=== PATIENT | female | born 1990 | race Caucasian/White ===

== ENCOUNTER 2021-06-07 03:59 | Inpatient (IN) | payer MEDICAID, SELFPAY ==
--- NOTE | 2021-06-07 | ECG_ITS ---
Test Reason : MEDICAL CLEARANCE Blood Pressure : / mmHG Vent. Rate : 097 BPM Atrial Rate : 097 BPM P-R Int : 146 ms QRS Dur : 080 ms QT Int : 366 ms P-R-T Axes : 043 054 013 degrees QTc Int : 464 ms Normal sinus rhythm Normal ECG No previous ECGs available Referred By: Marta Manning Electronically Signed By:ARLEY JUAN MD
[2021-06-07 04:06] VITALS: BP 130/77; PULSE 93; RESP 18; TEMP 36.9; O2SAT 100; BMI 37.2
--- NOTE | 2021-06-07 04:41 | ED.PSYCH ---
HPI - Psych General Chief Complaint: Psychiatric Symptoms Stated Complaint: suicidal thoughts Time Seen by Provider: 06/07/21 04:30 Source: patient Mode of arrival: ambulatory Limitations: no limitations History of Present Illness HPI Narrative: Patient comes to the emergency room via private vehicle. Patient states that she has been feeling suicidal, depressed for approximately 3 days. Patient states that she has history of suicide attempts, patient has tried overdosing with medications and cutting her wrists. Patient states that today she was very close to doing so. Patient states that she is going ?to a lot?. Patient used to take medications for depression, states she has been off medications for many years Related Data Allergies Allergy/AdvReac Type Severity Reaction Status Date / Time No Known Allergies Allergy Verified 06/07/21 04:06 Review of Systems Review of Systems: Constitutional : No Weight loss, No Fever, No Chills, No Night Sweats, No Fatigue, No Malaise ENT/Mouth : No Hearing loss, No Ear Pain, No Nasal Congestion, No Sinus Pain, No Hoarseness, No sore throat, No Rhinorrhea, No Swallowing Difficulty Eyes: No Eye Pain, No Swelling, No Redness, No Foreign Body, No Discharge, No Vision Changes Cardiovascular : No Chest Pain, No SOB, No Dyspnea on Exertion, No Orthopnea, No Edema, No Palpitations Respiratory : No Cough, No Sputum, No Wheezing, No Smoke Exposure, No Dyspnea Gastrointestinal : No Nausea, No Vomiting, No Diarrhea, No Constipation, No abdominal Pain, No Hematochezia, No Melena Genitourinary : no irregular bleeding, No Dysuria, No Urinary Frequency, No Hematuria, No Urinary Incontinence, No Urgency, No Flank Pain, No Urinary Flow Changes, No Hesitancy Musculoskeletal : No joint pain, No Myalgias, No Joint Swelling Skin : No Skin Lesions, No rash Neuro : No Weakness, No Numbness, No Paresthesias, No Loss of Consciousness, No Dizziness, No Headache Psych : Complaining of anxiety, depression, suicidal ideation, no homicidal ideation Heme/Lymph: No Bruising, No Bleeding,No Lymphadenopathy Endocrine : No Polyuria, No Polydipsia, No Temperature Intolerance PMFSH Past Medical History Medical History (Updated 06/07/21 @ 04:46 by Dayanara Wolf MD) Anxiety Depression Social History Social History Advance Directives: No Patient : No Physical Exam Vital Signs: Vital Signs: Last Vital Signs Temp 98.5 F 06/07/21 04:06 Pulse 93 06/07/21 04:06 Resp 18 06/07/21 04:06 BP 130/77 06/07/21 04:06 Pulse Ox 100 06/07/21 04:06 BMI result Body Mass Index 37.2 Const: Other: Appearance: Alert. Oriented X3. Eyes: Pupils equal, round and reactive to light. ENT: Pharynx normal. Neck: Normal inspection. Neck supple. No lymph nodes noted. No crepitus CVS: Normal heart rate and rhythm. Pulses normal. Normal S1 and S2 Respiratory: No respiratory distress. Breath sounds normal. No Wheezing. No rales Abdomen: Soft and nontender. No rigidity. No distention. Skin: Skin warm and dry. Normal skin color. Normal skin turgor. Extremities: No lower extremity edema. No Lacerations. No Rash Neuro: Oriented X 3. No motor deficit. No sensory deficit. Moving all extermities. No slurred speech. Cranial nerves 2-12 grossly intact Psych: Calm, cooperative, teary, coherent Course Course Course Narrative: Given her prior history of suicide attempts, patient is now under a Section 12, now in patient's chart. Patient [facility] by [facility]. Physician observation started at 04:37 Discharge Plan Discharge Clinical Impression: Suicidal ideation Patient Disposition: Still a Patient
--- NOTE | 2021-06-07 04:44 | PC.NURSE ---
Per MD, plan for Sec 12. Security at bedside for changeover with ALICIA Singletary.
[2021-06-07 05:01] LABS: Appearance Urine HAZY; Color Urine YELLOW; Glucose Urine UA NEG (NEG); Leukocyte Esterase Urine NEG (NEG); Nitrite Urine NEG (NEG); PH 6.5 (5.0-8.0); Urine Blood NEG (NEG); Urine Ketones NEG (NEG); Urine Protein NEG (NEG-TRACE)
[2021-06-07 05:02] LABS: UPreg QC Valid YES; Urine Pregnancy NEGATIVE (NEGATIVE)
--- NOTE | 2021-06-07 05:02 | PC.NURSE ---
pt ambulated to the bathroom with steady gait. urine collected, pt calm and cooperative. pt has been s12 per dr luna. pt is in pod clothing and belongings gone thur with security.
[2021-06-07 05:14] LABS: COVID-19 Test Negative (Negative); IDNOW Serial# 9DD0AD1C
[2021-06-07 05:15] LABS: Amphetamine Screen Urine Not Detected (Not Detect); Barbiturates, Urine Not Detected (Not Detect); Benzodiazepines Screen Urine Not Detected (Not Detect); Cannabinoid Screen Urine POSITIVE (Not Detect); Cocaine Screen Urine Not Detected (Not Detect); Fentanyl, urine Not Detected (Not Detect); Opiate Screen Urine Not Detected (Not Detect); Phencyclidine Screen Urine Not Detected (Not Detect)
[2021-06-07] MEDS: LORazepam 1 MG TABLET 2 MG PO (06:47)
--- NOTE | 2021-06-07 06:49 | PC.NURSE ---
Patient was just transferred to ED POD from main ED, independent ambulation, tearful, depressed, [facility] referral completed/confirmed, pending ETA, patient reported racing thought and anxiety 10/29, provider notified/ordered Ativan 2 mg PO, administered as ordered, pending effect, patient requested not to share her record with anyone at this time, no medication claim history available at this time, will continue to monitor.
--- NOTE | 2021-06-07 07:31 | PC.NURSE ---
patient appears to remain asleep at present respirations are even and unlabored, patient appears in no distress
[2021-06-07 14:33] LABS: MANUAL DIFF FLAG NO
[2021-06-07 14:34] LABS: Basophils Percent Auto 0.2 % (0-2); Eosinophils Percent Auto 0.2 % (0-4); Hematocrit 41.4 % (37.0-47.0); Hemoglobin 14.3 g/dl (12.0-16.0); Imm Gran Abs Auto 0.02 X10*3/uL (0.00-0.03); Imm Gran Pct Auto 0.2 % (0.0-0.4); Lymphocytes Absolute Auto 2.1 X10*3/uL (1.2-4.9); Lymphocytes Percent Auto 21.4 % (20-40); Mean Corpuscular HGB Conc 34.5 g/dl (31.0-35.0); Mean Corpuscular Hemoglobin 31.4 pg (27.0-33.0); Mean Platelet Volume 8.4 fL (9.4-12.3); Monocytes Absolute Auto 0.5 X10*3/uL (0.1-1.2); Monocytes Percent Auto 5.5 % (2-11); Neutrophils Absolute Auto 6.9 x10*3/uL (2.0-8.3); Neutrophils Percent Auto 72.5 % (45-73); Platelet Count 303 X10*3/uL (160-400); Red Blood Count 4.55 X10*6/uL (4.20-5.50); Red Cell Distribution Width 11.8 % (11.0-16.0); White Blood Count 9.6 X10*3/uL (4.8-10.8)
[2021-06-07 14:53] LABS: Alanine Aminotransferase 29 U/L (0-31); Albumin Level 4.3 g/dL (3.5-5.0); Alkaline Phosphatase 83 U/L (39-117); Anion Gap 12 (12-20); Aspartate Amino Transferase 21 U/L (5-31); Bilirubin Total 0.6 mg/dL (0.0-1.0); Blood Urea Nitrogen 10 mg/dL (9-16); Calcium 9.9 mg/dL (8.4-10.2); Carbon Dioxide 26 mmol/L (22-29); Chloride 105 mmol/L (96-108); Creatinine Clr Calc Pharmacy 112.5; Estimated Glomerular Filt Rate > 60; Glucose Random 165 mg/dL (60-115); Potassium 3.8 mmol/L (3.3-5.1); Sodium 139 mmol/L (135-145)
[2021-06-07 15:55] VITALS: BP 155/95; PULSE 79; RESP 20; TEMP 36.8; O2SAT 96
[2021-06-07] MEDS: hydrOXYzine HCL 50 MG TABLET PO (16:30)
[2021-06-07] MEDS: Acetaminophen 325 MG TABLET 975 MG PO (16:30)
[2021-06-07 23:19] VITALS: BP 108/67; PULSE 82; RESP 18; TEMP 36.3; O2SAT 97
[2021-06-07] MEDS: hydrOXYzine HCL 25 MG TABLET PO (23:42)
[2021-06-07] MEDS: traZODone HCL 50 MG TABLET PO (23:42)
--- NOTE | 2021-06-08 02:27 | PC.ADMIT ---
Alva is a 31 y/o single, Ukrainian speaking female who presented herself to [facility] with increased anxiety, depression, and SI. Patient is from [place], [place] and came to this hospital in an attempt to avoid any family and friends. Patient told her family that she was , they had a baby shower, and patient told her mother she was going into hospital for a . Mother went to her daughter's home to drive her and found the door open and items missing. Mom called police. Patient had a test done and it was negative. Patient reports she was never but so very much wanted to be. Due to this patient reported her anxiety and depression have become overwhelming and she has begun t hear voices telling her to kill herself. Patient reports not taking any medication for past 2 years. Patient reports 2 past suicide attempts in the past 10 years. Patient does present with suicidal ideation but at this time is able to contract for safety. Patient UTOX+ for cannabis. Patient Covid - . Patient was tired when arriving on unit but was cooperative with nurse assessment.
[2021-06-08 11:58] VITALS: BMI 37.3
[2021-06-08 13:00] VITALS: BP 109/57; PULSE 80; RESP 16; TEMP 35.3; O2SAT 95
[2021-06-08] MEDS: QUEtiapine Fumarate 50 MG TABLET PO (13:20)
[2021-06-08] MEDS: Escitalopram Oxalate 5 MG TABLET PO (15:04)
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
[2021-06-08 18:00] VITALS: BP 91/50; PULSE 76; RESP 16; TEMP 36.9; O2SAT 96
[2021-06-08] MEDS: LORazepam 1 MG TABLET PO (18:29)
[2021-06-08] MEDS: traZODone HCL 50 MG TABLET PO (20:32)
[2021-06-09] MEDS: traZODone HCL 50 MG TABLET PO ×3 (01:55→22:16)
[2021-06-09] MEDS: QUEtiapine Fumarate 50 MG TABLET PO (01:55)
[2021-06-09 08:30] VITALS: BP 105/62; PULSE 81; TEMP 36.2
[2021-06-09] MEDS: Escitalopram Oxalate 5 MG TABLET PO (09:15)
[2021-06-09] MEDS: LORazepam 1 MG TABLET PO ×3 (11:22→21:12)
--- NOTE | 2021-06-09 12:43 | HO.PSYCHPN ---
Subjective Subjective Date of Service: 06/09/21 Reason For Visit: Anxiety Interim History: pt found lying in her bed speaking on the phone with her mother. she ends the conversation to speak with MD. becomes a bit tearful and agitated saying it is her sister's birthday on saturday and she wants to be able to leave the hospital to be there. says all she is getting is medication here. extended oration on her dislike of groups, social anxiety, distaste to have to repeat her story (which she finds re-traumatizing). MD spends substantial amount of time coaching and presenting opportunity to reframe experience here. discuss coping skills of writing and listening to music. pt was informed that journal and headphones are available. per staff, increased anx/dep. tearful during check-in. attended one group. took shower. withdrawn. med-compliant. endorsing AH. slept after getting trazodone and seroquel. Mental Status Exam Mental Status Exam Narrative: seen in her room, lying in bed talking on phone with mother. declines to come to interview room for interview but rather indicates she prefers to speak in her room. disheveled. no PMA/PMR. cooperative with interview. speech nml in rate, amount, loudness, tone, latency. thoughts linear and logical. affect constricted, moments of agitation and tearfulness. no SI/HI/AVH expressed. Diagnostics Vital Signs (24Hr): Vital Signs - 24 hr 06/08/21 13:00 06/08/21 18:00 06/09/21 08:30 Temperature 95.6 F L 98.4 F 97.2 F Pulse Rate 80 76 81 Respiratory Rate 16 16 Blood Pressure 109/57 L 91/50 L 105/62 Pulse Oximetry 95 96 BMI result Body Mass Index 37.3 Labs Results: 06/07/21 14:29 06/07/21 14:29 Labs: Laboratory Results - last 48 hr 06/07/21 06/07/21 14:29 14:29 WBC 9.6 RBC 4.55 Hgb 14.3 Hct 41.4 MCV 91.0 MCH 31.4 MCHC 34.5 RDW 11.8 Plt Count 303 MPV 8.4 L Immature Gran % (Auto) 0.2 Neut % (Auto) 72.5 Lymph % (Auto) 21.4 [place] % (Auto) 5.5 Eos % (Auto) 0.2 Baso % (Auto) 0.2 Lymph # (Auto) 2.1 [place] # (Auto) 0.5 Eos # (Auto) 0.0 Baso # (Auto) 0.0 Abs Immat Gran (auto) 0.02 Absolute Neuts (auto) 6.9 Absolute Nucleated RBC 0.000 Nucleated RBC % (auto) 0.0 Sodium 139 Potassium 3.8 Chloride 105 Carbon Dioxide 26 Anion Gap 12 BUN 10 Creatinine 0.81 Estim Creat Clear Calc 112.5 Estimated GFR > 60 Random Glucose 165 H Calcium 9.9 Total Bilirubin 0.6 AST 21 ALT 29 Alkaline Phosphatase 83 Total Protein 7.0 Albumin 4.3 Medications Medications Current Medications Acetaminophen (Acetaminophen 325 Mg Tablet) 650 mg PO Q6H PRN PRN Reason: Headache/Pain Mild Scale (1-3) Al Hydroxide/Mg Hydroxide (Magnesium Hydrox/Alum Hydrox 30 Ml Oral.Susp) 30 ml PO Q6H PRN PRN Reason: Heartburn/Nausea Escitalopram Oxalate (Escitalopram Oxalate 5 Mg Tablet) 5 mg PO DAILY [facility] Last Admin: 06/09/21 09:15 Dose: 5 mg Documented by: Hydroxyzine HCl (Hydroxyzine Hcl 25 Mg Tablet) 25 mg PO BEDTIME PRN PRN Reason: Anxiety Last Admin: 06/07/21 23:42 Dose: 25 mg Documented by: Lorazepam (Lorazepam 1 Mg Tablet) 1 mg PO Q4H PRN PRN Reason: severe anxiety Last Admin: 06/09/21 11:22 Dose: 1 mg Documented by: Magnesium Hydroxide (Milk Of Magnesia 30 Ml Oral.Susp) 30 ml PO DAILY PRN PRN Reason: Constipation Nicotine Polacrilex (Nicotine Polacrilex 2 Mg Gum) 2 mg BUCCAL Q2H PRN PRN Reason: Nicotine Cravings Quetiapine Fumarate (Quetiapine Fumarate 50 Mg Tablet) 50 mg PO Q4H PRN PRN Reason: agitation Last Admin: 06/09/21 01:55 Dose: 50 mg Documented by: Trazodone HCl (Trazodone Hcl 50 Mg Tablet) 50 mg PO BEDTIME PRN PRN Reason: Insomnia Last Admin: 06/09/21 01:55 Dose: 50 mg Documented by: Trazodone HCl (Trazodone Hcl 50 Mg Tablet) 50 mg PO BEDTIME [facility] Last Admin: 06/08/21 20:32 Dose: 50 mg Documented by: Allergies Allergies Allergy/AdvReac Type Severity Reaction Status Date / Time No Known Allergies Allergy Verified 06/07/21 04:06 Assessment & Plan Assessment & Plan (1) Anxiety disorder: Status: Acute Code(s): F41.9 - Anxiety disorder, unspecified (2) Suicidal ideation: Status: Acute Code(s): R45.851 - Suicidal ideations (3) Depression: Status: Acute Code(s): F32.A - Depression, unspecified Plan restarted lexapro 06/08 at 5 mg daily. started trazodone 50 at bedtime 06/08. ativan and seroquel PRNs for anxiety for the near term. aware ativan will not be prescribed at discharge. I spent minutes with the patient and/or on the patient floor today, greater than?50% of which was spent counseling/coordinating care. Reason for contiued inpatient stay Substantial Risk for: inability to function and rapid decompensation
[2021-06-09 21:00] VITALS: BP 134/75; PULSE 75; TEMP 36.8; O2SAT 98
[2021-06-10] MEDS: QUEtiapine Fumarate 50 MG TABLET PO ×2 (00:06→12:39)
[2021-06-10] MEDS: traZODone HCL 50 MG TABLET PO ×2 (00:06→23:26)
[2021-06-10] MEDS: Escitalopram Oxalate 5 MG TABLET PO (09:28)
[2021-06-10 09:36] VITALS: BP 125/74; PULSE 84; RESP 18; TEMP 36.8; O2SAT 97
[2021-06-10] MEDS: LORazepam 0.5 MG TABLET PO (18:43)
--- NOTE | 2021-06-10 20:42 | P.PNPSI_ITS ---
Subjective Subjective Date of Service: 06/10/21 Reason For Visit: Anxiety Interim History: pt found sleeping in her bed, easily rousable. reports she has not had any AH since yesterday afternoon. states she had a good day yesterday. experiencing some anxiety, however. some difficulty sleeping. asks that trazodone be increased to 200 mg at bedtime. as pt has been sleeping much during the day, suggests lowering ativan and seroquel PRNs from 1 mg to 0.5 mg and 50 mg to 25 mg, respectively. pt assents. lexapro increased to 10 mg daily as of tomorrow. per staff, dep -08/29. asking to discharge. planning for discharge saturday. no SI. Mental Status Exam Mental Status Exam Narrative: seen in her room, lying in bed, easily rousable. adequately dressed and groomed. no PMA/PMR. cooperative with interview. speech nml in rate, amount, loudness, tone, latency. thoughts linear and logical. affect constricted, non- labile. no SI or AH. no HI/VH expressed. Diagnostics Vital Signs (24Hr): Vital Signs - 24 hr 06/09/21 21:00 06/10/21 09:36 Temperature 98.3 F 98.2 F Pulse Rate 75 84 Respiratory Rate 18 Blood Pressure 134/75 125/74 Pulse Oximetry 98 97 BMI result Body Mass Index 37.3 Labs Results: 06/07/21 14:29 06/07/21 14:29 Medications Medications Current Medications Acetaminophen (Acetaminophen 325 Mg Tablet) 650 mg PO Q6H PRN PRN Reason: Headache/Pain Mild Scale (1-3) Al Hydroxide/Mg Hydroxide (Magnesium Hydrox/Alum Hydrox 30 Ml Oral.Susp) 30 ml PO Q6H PRN PRN Reason: Heartburn/Nausea Escitalopram Oxalate (Escitalopram Oxalate 10 Mg Tablet) 10 mg PO DAILY [facility] Hydroxyzine HCl (Hydroxyzine Hcl 25 Mg Tablet) 25 mg PO BEDTIME PRN PRN Reason: Anxiety Last Admin: 06/07/21 23:42 Dose: 25 mg Documented by: Lorazepam (Lorazepam 0.5 Mg Tablet) 0.5 mg PO Q4H PRN PRN Reason: severe anxiety Last Admin: 06/10/21 18:43 Dose: 0.5 mg Documented by: Magnesium Hydroxide (Milk Of Magnesia 30 Ml Oral.Susp) 30 ml PO DAILY PRN PRN Reason: Constipation Nicotine Polacrilex (Nicotine Polacrilex 2 Mg Gum) 2 mg BUCCAL Q2H PRN PRN Reason: Nicotine Cravings Quetiapine Fumarate (Quetiapine Fumarate 25 Mg Tablet) 25 mg PO Q4H PRN PRN Reason: agitation Trazodone HCl (Trazodone Hcl 50 Mg Tablet) 50 mg PO BEDTIME PRN PRN Reason: Insomnia Last Admin: 06/10/21 00:06 Dose: 50 mg Documented by: Trazodone HCl (Trazodone Hcl 100 Mg Tablet) 200 mg PO BEDTIME [facility] Allergies Allergies Allergy/AdvReac Type Severity Reaction Status Date / Time No Known Allergies Allergy Verified 06/07/21 04:06 Assessment & Plan Assessment & Plan (1) Anxiety disorder: Status: Acute Code(s): F41.9 - Anxiety disorder, unspecified (2) Suicidal ideation: Status: Acute Code(s): R45.851 - Suicidal ideations (3) Depression: Status: Acute Code(s): F32.A - Depression, unspecified Plan restarted lexapro 06/08 at 5 mg daily, increased to 10 mg daily as of 06/11. started trazodone 50 at bedtime 06/08, titrated to 200 mg QHS as of 06/10. ativan and seroquel PRNs for anxiety for the near term. aware ativan will not be prescribed at discharge. I spent minutes with the patient and/or on the patient floor today, greater than?50% of which was spent counseling/coordinating care. Reason for contiued inpatient stay Substantial Risk for: harm to self, inability to function and rapid decompensation
[2021-06-10 21:03] VITALS: BP 131/78; PULSE 105; TEMP 36.4; O2SAT 94
[2021-06-10] MEDS: traZODone HCL 100 MG TABLET 200 MG PO (21:17)
[2021-06-10] MEDS: QUEtiapine Fumarate 25 MG TABLET PO (21:56)
[2021-06-11] MEDS: Escitalopram Oxalate 10 MG TABLET PO (12:12)
[2021-06-11] MEDS: Ibuprofen 600 MG TABLET PO (12:14)
--- NOTE | 2021-06-11 15:31 | P.PNPSI_ITS ---
Subjective Subjective Date of Service: 06/11/21 Reason For Visit: Anxiety Interim History: pt c/o pain in her hand, willing to try ibuprofen. having anxiety about discharge, saying she is not conflicted about it but rather is very desirous of discharge. incontinent of stool in the shower this morning - felt to be related to meal from [facility] last night. felt hungover this morning and will try to take less medication at tonight. planning to read herself to sleep. per staff, had food delivered last NOC. dep 2, anx 5. diarrhea in shower, clogged drain. had seroquel, trazodone for sleep last night. Mental Status Exam Mental Status Exam Narrative: adequately dressed and groomed. no PMA/PMR. cooperative with interview. speech nml in rate, amount, loudness, tone, latency. thoughts linear and logical. affect constricted, non-labile, normo-intense. no SI/HI/AVH expressed . Diagnostics Vital Signs (24Hr): Vital Signs - 24 hr 06/10/21 21:03 Temperature 97.5 F Pulse Rate 105 H Blood Pressure 131/78 Pulse Oximetry 94 BMI result Body Mass Index 37.3 Labs Results: 06/07/21 14:29 06/07/21 14:29 Medications Medications Current Medications Acetaminophen (Acetaminophen 325 Mg Tablet) 650 mg PO Q6H PRN PRN Reason: Headache/Pain Mild Scale (1-3) Al Hydroxide/Mg Hydroxide (Magnesium Hydrox/Alum Hydrox 30 Ml Oral.Susp) 30 ml PO Q6H PRN PRN Reason: Heartburn/Nausea Escitalopram Oxalate (Escitalopram Oxalate 10 Mg Tablet) 10 mg PO DAILY LEA Last Admin: 06/11/21 12:12 Dose: 10 mg Documented by: Hydroxyzine HCl (Hydroxyzine Hcl 25 Mg Tablet) 25 mg PO BEDTIME PRN PRN Reason: Anxiety Last Admin: 06/07/21 23:42 Dose: 25 mg Documented by: Ibuprofen (Ibuprofen 600 Mg Tablet) 600 mg PO QID PRN PRN Reason: Pain, Severe (Pain Scale 7-10) Last Admin: 06/11/21 12:14 Dose: 600 mg Documented by: Lorazepam (Lorazepam 0.5 Mg Tablet) 0.5 mg PO Q4H PRN PRN Reason: severe anxiety Last Admin: 06/10/21 18:43 Dose: 0.5 mg Documented by: Magnesium Hydroxide (Milk Of Magnesia 30 Ml Oral.Susp) 30 ml PO DAILY PRN PRN Reason: Constipation Nicotine Polacrilex (Nicotine Polacrilex 2 Mg Gum) 2 mg BUCCAL Q2H PRN PRN Reason: Nicotine Cravings Quetiapine Fumarate (Quetiapine Fumarate 25 Mg Tablet) 25 mg PO Q4H PRN PRN Reason: agitation Last Admin: 06/10/21 21:56 Dose: 25 mg Documented by: Trazodone HCl (Trazodone Hcl 50 Mg Tablet) 50 mg PO BEDTIME PRN PRN Reason: Insomnia Last Admin: 06/10/21 23:26 Dose: 50 mg Documented by: Trazodone HCl (Trazodone Hcl 100 Mg Tablet) 200 mg PO BEDTIME LEA Last Admin: 06/10/21 21:17 Dose: 200 mg Documented by: Allergies Allergies Allergy/AdvReac Type Severity Reaction Status Date / Time No Known Allergies Allergy Verified 06/07/21 04:06 Assessment & Plan Assessment & Plan (1) Anxiety disorder: Status: Acute Code(s): F41.9 - Anxiety disorder, unspecified (2) Suicidal ideation: Status: Acute Code(s): R45.851 - Suicidal ideations (3) Depression: Status: Acute Code(s): F32.A - Depression, unspecified Plan restarted lexapro 06/08 at 5 mg daily, increased to 10 mg daily as of 06/11. started trazodone 50 at bedtime 06/08, titrated to 200 mg QHS as of 06/10. ativan and seroquel PRNs for anxiety for the near term. aware ativan will not be prescribed at discharge. I spent minutes with the patient and/or on the patient floor today, greater than?50% of which was spent counseling/coordinating care. Reason for contiued inpatient stay Substantial Risk for: harm to self, inability to function and rapid decompensation
[2021-06-11] MEDS: LORazepam 0.5 MG TABLET PO (15:44)
[2021-06-11 18:00] VITALS: BP 124/77; PULSE 95; RESP 18; TEMP 36.8; O2SAT 98
[2021-06-11] MEDS: traZODone HCL 100 MG TABLET 200 MG PO (20:37)
[2021-06-11] MEDS: traZODone HCL 50 MG TABLET PO (22:23)
[2021-06-12] MEDS: Escitalopram Oxalate 10 MG TABLET PO (08:15)
[2021-06-12 08:17] VITALS: BP 126/56; PULSE 84; RESP 16; TEMP 36.8; O2SAT 97
[2021-06-12] MEDS: LORazepam 0.5 MG TABLET PO (10:06)
[2021-06-12] MEDS: traMADoL HCL 50 MG TABLET PO ×3 (12:05→22:58)
[2021-06-12] MEDS: QUEtiapine Fumarate 25 MG TABLET 12.5 MG PO (15:07)
[2021-06-12 18:00] VITALS: BP 128/67; PULSE 88; RESP 16; TEMP 36.6; O2SAT 98
--- NOTE | 2021-06-12 21:52 | HO.PSYCHPN ---
Subjective Subjective Date of Service: 06/12/21 Reason For Visit: Anxiety Interim History: pt c/o severe wrist pain this morning, asks for tramadol, which is obliged. slept well last night. anx/dep better this morning, which she attributes to meditation group. per staff, ativan helpful yesterday. social, had trazodone last NOC with good effect. said NSAIDs were not helping her wrist pain. planning to DC tomorrow. Mental Status Exam Mental Status Exam Narrative: adequately dressed and groomed. no PMA/PMR. cooperative with interview. speech nml in rate, amount, loudness, tone, latency. thoughts linear and logical. affect flexible, non-labile, normo-intense. no SI/HI/AVH expressed. Diagnostics Vital Signs (24Hr): Vital Signs - 24 hr 06/12/21 08:17 06/12/21 18:00 Temperature 98.3 F 97.8 F Pulse Rate 84 88 Respiratory Rate 16 16 Blood Pressure 126/56 L 128/67 Pulse Oximetry 97 98 BMI result Body Mass Index 37.3 Labs Results: 06/07/21 14:29 06/07/21 14:29 Medications Medications Current Medications Acetaminophen (Acetaminophen 325 Mg Tablet) 650 mg PO Q6H PRN PRN Reason: Headache/Pain Mild Scale (1-3) Al Hydroxide/Mg Hydroxide (Magnesium Hydrox/Alum Hydrox 30 Ml Oral.Susp) 30 ml PO Q6H PRN PRN Reason: Heartburn/Nausea Escitalopram Oxalate (Escitalopram Oxalate 10 Mg Tablet) 10 mg PO DAILY LEA Last Admin: 06/12/21 08:15 Dose: 10 mg Documented by: Hydroxyzine HCl (Hydroxyzine Hcl 25 Mg Tablet) 25 mg PO BEDTIME PRN PRN Reason: Anxiety Last Admin: 06/07/21 23:42 Dose: 25 mg Documented by: Ibuprofen (Ibuprofen 600 Mg Tablet) 600 mg PO QID PRN PRN Reason: Pain, Severe (Pain Scale 7-10) Last Admin: 06/11/21 12:14 Dose: 600 mg Documented by: Lorazepam (Lorazepam 0.5 Mg Tablet) 0.5 mg PO Q6H PRN PRN Reason: severe anxiety Magnesium Hydroxide (Milk Of Magnesia 30 Ml Oral.Susp) 30 ml PO DAILY PRN PRN Reason: Constipation Nicotine Polacrilex (Nicotine Polacrilex 2 Mg Gum) 2 mg BUCCAL Q2H PRN PRN Reason: Nicotine Cravings Quetiapine Fumarate (Quetiapine Fumarate 25 Mg Tablet) 12.5 mg PO Q4H PRN PRN Reason: agitation Last Admin: 06/12/21 15:07 Dose: 12.5 mg Documented by: Tramadol HCl (Tramadol Hcl 50 Mg Tablet) 50 mg PO Q4H PRN PRN Reason: wrist pain Last Admin: 06/12/21 19:14 Dose: 50 mg Documented by: Trazodone HCl (Trazodone Hcl 50 Mg Tablet) 50 mg PO BEDTIME PRN PRN Reason: Insomnia Last Admin: 06/11/21 22:23 Dose: 50 mg Documented by: Trazodone HCl (Trazodone Hcl 100 Mg Tablet) 200 mg PO BEDTIME LEA Last Admin: 06/11/21 20:37 Dose: 200 mg Documented by: Allergies Allergies Allergy/AdvReac Type Severity Reaction Status Date / Time No Known Allergies Allergy Verified 06/07/21 04:06 Assessment & Plan Assessment & Plan (1) Anxiety disorder: Status: Acute Code(s): F41.9 - Anxiety disorder, unspecified (2) Suicidal ideation: Status: Acute Code(s): R45.851 - Suicidal ideations (3) Depression: Status: Acute Code(s): F32.A - Depression, unspecified Plan restarted lexapro 06/08 at 5 mg daily, increased to 10 mg daily as of 06/11. started trazodone 50 at bedtime 06/08, titrated to 200 mg QHS as of 06/10. ativan and seroquel PRNs for anxiety for the near term. aware ativan will not be prescribed at discharge. I spent minutes with the patient and/or on the patient floor today, greater than?50% of which was spent counseling/coordinating care. Reason for contiued inpatient stay Substantial Risk for: inability to function and rapid decompensation
[2021-06-12] MEDS: traZODone HCL 100 MG TABLET 200 MG PO (21:55)
[2021-06-13] MEDS: QUEtiapine Fumarate 25 MG TABLET 12.5 MG PO ×2 (03:14→10:24)
[2021-06-13] MEDS: Acetaminophen 325 MG TABLET 650 MG PO (03:15)
[2021-06-13] MEDS: traMADoL HCL 50 MG TABLET PO ×2 (07:49→11:46)
[2021-06-13] MEDS: Escitalopram Oxalate 10 MG TABLET PO (07:52)
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
== END 2021-06-13 12:12 | disposition home or self-care (01) | DRG 754 ==
LOC: HO.ED 12:44 → HO.PADLT16 23:07
PROVIDERS: Nurse Practitioner Family; Admitting Provider Psychiatry & Neurology Psychiatry; Emergency Provider Emergency Medicine; Visit Provider Psychiatry & Neurology Psychiatry
DX: F32.A Depression, unspecified (principal); R45.851 Suicidal ideations; F17.210 Nicotine dependence, cigarettes, uncomplicated; F41.9 Anxiety disorder, unspecified; Z20.822 Contact with and (suspected) exposure to COVID-19; Z71.6 Tobacco abuse counseling; Z91.51 Personal history of suicidal behavior; Z79.899 Other long term (current) drug therapy
CPT/HCPCS: 36415; 80053; 80307; 81003; 81025; 85025; 87635; 93005; 99285